=== PATIENT | female | born 2000 | race Caucasian/White ===

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

== ENCOUNTER 2020-02-11 18:12 | Emergency (ER) | payer MEDICAID ==
[~2020-02-11] VITALS: Ht 165.1 cm; Wt 129.5 kg
[2020-02-11 18:22] VITALS: TEMP 98.2
[2020-02-11 18:47] LABS: COLLECTION METHOD CLEAN CATCH
[2020-02-11 18:52] LABS: BASO % 0.1 % (0.0-2.0); GRAN # 5.1 (1.4-6.5); GRAN % 62.3 % (42.2-75.2); HEMATOCRIT 40.4 % (35.0-45.0); HEMOGLOBIN 13.2 g/dl (12.0-15.0); LYMPH # 2.4 (1.2-3.4); LYMPH % 29.2 % (20.0-51.0); MEAN CELL VOLUME 91 fl (80.0-95.0); MEAN CORPUSCULAR HEMOGLOBIN 30 pg (26.0-32.0); MEAN CORPUSCULAR HGB CONC 33 g/dl (33.0-37.0); MEAN PLATELET VOLUME 9.4 fl (7.4-10.4); MONO # 0.7 (0.1-0.6); PLATELET COUNT 274 K/mm3 (130-400); RED BLOOD COUNT 4.44 M/mm3 (4.10-5.30); REDCELL DISTRIBUTION WIDTH-CV 13.4 % (11.5-14.5)
[2020-02-11 18:58] LABS: AMORPHOUS CRYSTAL Present /uL; MUCOUS Present /lpf; PH 6 (5-8); URINE APPEARANCE Cloudy; URINE BACTERIA Moderate /hpf; URINE BILIRUBIN Negative (NEGATIVE); URINE BLOOD 1+ (NEGATIVE); URINE COLOR Yellow; URINE GLUCOSE Negative (NEGATIVE); URINE KETONE Negative (NEGATIVE); URINE LEUKOCYTE ESTERASE 3+ (NEGATIVE); URINE NITRATE Negative (NEGATIVE); URINE PROTEIN(semi-quant) 1+ (NEGATIVE); URINE UROBILINOGEN Negative (NEGATIVE)
[2020-02-11 19:02] LABS: BILIRUBIN,TOTAL 0.5 mg/dL (0.0-1.0); C-REACTIVE PROTEIN 1.8 mg/dL (0.0-0.9); CALCIUM 8.9 mg/dL (8.4-10.2); CREATININE, serum 0.7 (0.52-1.25); POTASSIUM 3.9 mmol/L (3.4-5.0); TOTAL PROTEIN 7.3 gm/dL (6.4-8.2)
[2020-02-11] MEDS ORDERED: OMNICEF 300MG300 MG PO (20:03)
[2020-02-11 20:19] VITALS: BP 120/75; PULSE 75
== END 2020-02-11 20:21 | disposition home or self-care (01) ==
LOC: COL.ER 18:12
PROVIDERS: Emergency Medicine
DX: N39.0 Urinary tract infection, site not specified (principal); R19.7 Diarrhea, unspecified; I10 Essential (primary) hypertension; Z79.84 Long term (current) use of oral hypoglycemic drugs
CPT/HCPCS: J0696; J2405; J3010; J7030; Q9967

== ENCOUNTER 2020-05-23 18:04 | Emergency (ER) | payer MEDICAID ==
[~2020-05-23] VITALS: Ht 167.6 cm; Wt 143.2 kg
[2020-05-23] MEDS ORDERED: CELEXA 20MG20 MG/TAB PO (19:48)
[2020-05-23] MEDS ORDERED: NEURONTIN600 MG/TAB PO (19:48)
[2020-05-23 20:37] VITALS: BP 148/81; PULSE 82; TEMP 98.3
== END 2020-05-23 20:38 | disposition home or self-care (01) ==
LOC: COL.ER 18:04
DX: M79.672 Pain in left foot (principal); F32.9 Major depressive disorder, single episode, unspecified; E11.9 Type 2 diabetes mellitus without complications; Z79.84 Long term (current) use of oral hypoglycemic drugs
CPT/HCPCS: J1885

== ENCOUNTER 2020-06-19 15:15 | Outpatient (RCR) | payer MEDICAID ==
[~2020-06-19 15:15] MED LIST changes: +NEURONTIN600 MG/TAB PO
== END 2020-07-11 08:49 | disposition home or self-care (01) ==
LOC: WSPT 15:15
DX: M79.672 Pain in left foot (principal); M79.671 Pain in right foot; Z98.890 Other specified postprocedural states

== ENCOUNTER → 2020-08-07 | Outpatient (RCR) | payer MEDICAID | LOC: WSPT | DX: M54.5 Low back pain (principal) ==

== ENCOUNTER 2020-10-21 19:58 | Emergency (ER) | payer MEDICAID ==
[~2020-10-21] VITALS: Ht 165.1 cm; Wt 143.2 kg
[2020-10-21 20:02] VITALS: TEMP 99.4
[2020-10-21 20:44] VITALS: BP 124/76; PULSE 83
== END 2020-10-21 20:46 | disposition home or self-care (01) ==
LOC: COL.ER 19:58
DX: K02.9 Dental caries, unspecified (principal); F32.9 Major depressive disorder, single episode, unspecified; Z79.84 Long term (current) use of oral hypoglycemic drugs
CPT/HCPCS: J1885

== ENCOUNTER 2020-10-23 09:45 | Outpatient (RCR) | payer MEDICAID | END 2020-11-07 | disposition home or self-care (01) | LOC: WSPT | DX: M54.5 Low back pain (principal) ==

== ENCOUNTER 2021-02-06 12:58 | Emergency (ER) | payer MEDICAID ==
[~2021-02-06] VITALS: Ht 162.6 cm; Wt 150.0 kg
[2021-02-06 13:18] VITALS: TEMP 98.4
[2021-02-06 14:41] LABS: BASO % 0.1 % (0.0-2.0); GRAN # 5.8 (1.4-6.5); GRAN % 69.6 % (42.2-75.2); HEMATOCRIT 40.8 % (35.0-45.0); LYMPH # 1.9 (1.2-3.4); LYMPH % 23.1 % (20.0-51.0); MEAN CELL VOLUME 92 fl (80.0-95.0); MEAN CORPUSCULAR HEMOGLOBIN 29 pg (26.0-32.0); MEAN CORPUSCULAR HGB CONC 32 g/dl (33.0-37.0); MEAN PLATELET VOLUME 9.1 fl (7.4-10.4); MONO # 0.6 (0.1-0.6); MONO % 6.8 % (1.7-9.3); PLATELET COUNT 288 K/mm3 (130-400); RED BLOOD COUNT 4.46 M/mm3 (4.10-5.30); REDCELL DISTRIBUTION WIDTH-CV 14.8 % (11.5-14.5)
[2021-02-06 14:48] LABS: BILIRUBIN,TOTAL 0.4 mg/dL (0.0-1.0); CALCIUM 9.4 mg/dL (8.4-10.2); CREATININE, serum 0.68 (0.52-1.25); POTASSIUM 3.9 mmol/L (3.4-5.0); TOTAL PROTEIN 7.1 gm/dL (6.4-8.2)
[2021-02-06 16:30] VITALS: BP 130/82; PULSE 86
== END 2021-02-06 16:30 | disposition home or self-care (01) ==
LOC: COL.ER 12:58
PROVIDERS: Emergency Medicine
DX: G43.909 Migraine, unspecified, not intractable, without status migrainosus (principal); R53.83 Other fatigue; R53.81 Other malaise; Z20.822 Contact with and (suspected) exposure to COVID-19
CPT/HCPCS: J0780; J1885

== ENCOUNTER 2021-04-23 23:24 | Emergency (ER) | payer MEDICAID ==
[~2021-04-23] VITALS: Ht 162.6 cm; Wt 163.6 kg
[2021-04-23 23:59] VITALS: TEMP 97.1
[2021-04-24 00:48] VITALS: BP 154/98; PULSE 78
== END 2021-04-24 00:48 | disposition home or self-care (01) ==
LOC: COL.ER 23:24
DX: F41.9 Anxiety disorder, unspecified (principal); R23.8 Other skin changes; F32.9 Major depressive disorder, single episode, unspecified; Z79.899 Other long term (current) drug therapy

== ENCOUNTER 2021-07-04 16:22 | Emergency (ER) | payer MEDICAID ==
[~2021-07-04] VITALS: Ht 165.1 cm; Wt 163.6 kg
[2021-07-04 16:28] VITALS: TEMP 98.1
[2021-07-04 18:08] LABS: GRAN # 7.4 K/mm3 (1.4-6.5); GRAN % 82.6 % (42.2-75.2); HEMATOCRIT 42.2 % (35.0-45.0); HEMOGLOBIN 13.8 g/dl (12.0-15.0); LYMPH % 11.3 % (20.0-51.0); MEAN CELL VOLUME 89 fl (80.0-95.0); MEAN CORPUSCULAR HEMOGLOBIN 29 pg (26.0-32.0); MEAN CORPUSCULAR HGB CONC 33 g/dl (33.0-37.0); MEAN PLATELET VOLUME 9.3 fl (7.4-10.4); MONO # 0.5 K/mm3 (0.1-0.6); MONO % 5.8 % (1.7-9.3); PLATELET COUNT 269 K/mm3 (130-400); RED BLOOD COUNT 4.73 M/mm3 (4.10-5.30); REDCELL DISTRIBUTION WIDTH-CV 14.7 % (11.5-14.5)
[2021-07-04 18:23] LABS: ALANINE AMINOTRANSFERASE 15 U/L (0-55); ALBUMIN 3.8 gm/dL (3.5-5.0); ALKALINE PHOSPHATASE 74 U/L (40-150); ANION GAP 10 mmol/L (7-16); AST,SGOT 17 U/L (5-34); BILIRUBIN,TOTAL 0.6 mg/dL (0.2-1.2); BLOOD UREA NITROGEN 9 mg/dL (7-19); C-REACTIVE PROTEIN 2.31 mg/dL (0.00-0.50); CALCIUM 9.3 mg/dL (8.4-10.2); CARBON DIOXIDE 25 mmol/L (22-29); CHLORIDE 105 mmol/L (98-107); CREATININE, serum 0.81 mg/dL (0.57-1.11); GLUCOSE 86 mg/dL (70-99); POTASSIUM 3.7 mmol/L (3.5-4.5); SODIUM 140 mmol/L (136-145); TOTAL PROTEIN 7.1 gm/dL (6.2-8.1)
[2021-07-04 18:30] LABS: TROPONIN-I < 0.010 ng/mL (0.00-0.033)
[2021-07-04 18:43] LABS: COLLECTION METHOD CLEAN CATCH
[2021-07-04 18:56] LABS: MUCOUS Present (NOT PRESENT); PH 7 (5-8); URINE APPEARANCE Cloudy (CLEAR/HAZY); URINE BACTERIA Moderate (NONE SEEN); URINE BILIRUBIN Negative (NEGATIVE); URINE BLOOD Negative (NEGATIVE); URINE COLOR Amber (YELLOW); URINE GLUCOSE Negative (NEGATIVE); URINE KETONE Negative (NEGATIVE); URINE LEUKOCYTE ESTERASE 2+ (NEGATIVE); URINE NITRATE Positive (NEGATIVE); URINE PROTEIN(semi-quant) Negative (NEGATIVE)
[2021-07-04 19:54] VITALS: BP 121/77; PULSE 102
== END 2021-07-04 19:54 | disposition home or self-care (01) ==
LOC: COL.ER 16:22
PROVIDERS: Nurse Practitioner Primary Care
DX: R07.89 Other chest pain (principal); F32.A Depression, unspecified; F41.9 Anxiety disorder, unspecified; Z79.899 Other long term (current) drug therapy

== ENCOUNTER 2021-08-06 13:09 | Emergency (ER) | payer MEDICAID ==
[~2021-08-06] VITALS: Ht 165.1 cm; Wt 163.6 kg
[2021-08-06 14:11] VITALS: TEMP 98.1
[2021-08-06] MEDS ORDERED: MOBIC15 MG PO (14:24)
[2021-08-06] MEDS ORDERED: PROVENTIL0.09 MG/A1 IH (14:24)
[2021-08-06] MEDS ORDERED: PREDNISONE50 MG PO (15:57)
[2021-08-06] MEDS ORDERED: CLEVER CHOICE1 EA20 MC (15:57)
[2021-08-06] MEDS ORDERED: VENTOLIN0.09 MG IH (15:57)
[2021-08-06 16:31] VITALS: BP 108/71; PULSE 112
== END 2021-08-06 16:31 | disposition home or self-care (01) ==
LOC: COL.ER 13:09
DX: R05.9 Cough, unspecified (principal); J45.909 Unspecified asthma, uncomplicated; E66.9 Obesity, unspecified; E11.9 Type 2 diabetes mellitus without complications; Z20.822 Contact with and (suspected) exposure to COVID-19; Z79.84 Long term (current) use of oral hypoglycemic drugs; Z79.899 Other long term (current) drug therapy; Z68.44 Body mass index [BMI] 60.0-69.9, adult
CPT/HCPCS: J7512

== ENCOUNTER → 2021-09-03 | Outpatient (RCR) | payer MEDICAID ==
[~2021-09-03] MED LIST changes: +CLEVER CHOICE1 EA20 MC; +MOBIC15 MG PO; +PREDNISONE20 MG PO; +PREDNISONE50 MG PO; +PROVENTIL0.09 MG/A1 IH
== END | disposition home or self-care (01) ==
LOC: PT.GENESIS
DX: N39.3 Stress incontinence (female) (male) (principal); M54.50 Low back pain, unspecified; M79.659 Pain in unspecified thigh; R53.1 Weakness

== ENCOUNTER 2021-09-17 17:34 | Emergency (ER) | payer MEDICAID ==
[~2021-09-17] VITALS: Ht 165.1 cm; Wt 154.5 kg
[~2021-09-17 17:34] MED LIST changes: -PREDNISONE20 MG PO
[2021-09-17 17:52] VITALS: TEMP 99.1
[2021-09-17 18:57] LABS: BASO % 0.1 % (0.0-2.0); GRAN # 7.3 K/mm3 (1.4-6.5); GRAN % 68.4 % (42.2-75.2); HEMOGLOBIN 12.1 g/dl (12.5-16.0); LYMPH # 2.6 K/mm3 (1.2-3.4); MEAN CELL VOLUME 92 fl (80.0-100.0); MEAN CORPUSCULAR HEMOGLOBIN 28 pg (27-31); MEAN CORPUSCULAR HGB CONC 31 g/dl (33.0-37.0); MEAN PLATELET VOLUME 9.5 fl (7.4-10.4); MONO # 0.7 K/mm3 (0.1-0.6); MONO % 6.9 % (1.7-9.3); PLATELET COUNT 330 K/mm3 (130-400); RED BLOOD COUNT 4.26 M/mm3 (4.10-5.30); REDCELL DISTRIBUTION WIDTH-CV 14.8 % (11.5-14.5)
[2021-09-17 19:15] LABS: ALBUMIN 3.6 gm/dL (3.5-5.0); BILIRUBIN,TOTAL 0.4 mg/dL (0.2-1.2); CALCIUM 8.9 mg/dL (8.4-10.2); CREATININE, serum 0.82 mg/dL (0.57-1.11); POTASSIUM 3.8 mmol/L (3.5-4.5); TOTAL PROTEIN 6.9 gm/dL (6.2-8.1)
[2021-09-17] MEDS ORDERED: PREDNISONE20 MG PO (21:12)
[2021-09-17 21:35] VITALS: BP 146/96; PULSE 112
== END 2021-09-17 21:35 | disposition home or self-care (01) ==
LOC: COL.ER 17:34
PROVIDERS: Nurse Practitioner Primary Care
DX: J45.901 Unspecified asthma with (acute) exacerbation (principal); E11.9 Type 2 diabetes mellitus without complications; Z79.52 Long term (current) use of systemic steroids; Z79.84 Long term (current) use of oral hypoglycemic drugs
CPT/HCPCS: J7030; J7512

== ENCOUNTER → 2021-10-01 | Outpatient (RCR) | payer MEDICAID ==
[~2021-10-01] MED LIST changes: +PREDNISONE20 MG PO
== END | disposition home or self-care (01) ==
LOC: PT.GENESIS
DX: N39.3 Stress incontinence (female) (male) (principal); M54.50 Low back pain, unspecified

== ENCOUNTER 2021-10-15 08:15 | Outpatient (RCR) | payer MEDICAID ==
[2021-10-31] MEDS ORDERED: CRUTCHES MC (14:30)
[2021-10-31] MEDS ORDERED: NORCO 325 MG-51 TAB PO (14:36)
== END 2021-11-01 | disposition home or self-care (01) ==
LOC: PT.GENESIS
DX: N39.3 Stress incontinence (female) (male) (principal); M54.50 Low back pain, unspecified

== ENCOUNTER → 2021-10-30 | Outpatient (CLI) | payer MEDICAID | LOC: COL.RAD 10:23 | DX: N91.4 Secondary oligomenorrhea (principal) ==

== ENCOUNTER 2021-10-31 13:28 | Emergency (ER) | payer MEDICAID ==
[~2021-10-31] VITALS: Ht 165.1 cm; Wt 159.1 kg
[2021-10-31 13:49] VITALS: BP 99/59; TEMP 97.9
[2021-10-31] MEDS ORDERED: CRUTCHES MC (14:30)
[2021-10-31] MEDS ORDERED: NORCO 325 MG-51 TAB PO (14:36)
[2021-10-31 14:45] VITALS: PULSE 87
== END 2021-10-31 14:45 | disposition home or self-care (01) ==
LOC: COL.ER 13:28
DX: S93.401A Sprain of unspecified ligament of right ankle, initial encounter (principal); E66.01 Morbid (severe) obesity due to excess calories; X50.1XXA Overexertion from prolonged static or awkward postures, initial encounter; W18.30XA Fall on same level, unspecified, initial encounter; Y92.89 Other specified places as the place of occurrence of the external cause

== ENCOUNTER 2021-11-28 09:00 | Outpatient (RCR) | payer MEDICAID | END 2021-12-01 | disposition home or self-care (01) | LOC: PT.GENESIS | DX: N39.3 Stress incontinence (female) (male) (principal) ==

== ENCOUNTER 2021-12-19 16:30 | Outpatient (RCR) | payer MEDICAID | END 2022-01-01 | disposition home or self-care (01) | LOC: WSPT | DX: N39.3 Stress incontinence (female) (male) (principal); M54.50 Low back pain, unspecified ==

== ENCOUNTER → 2022-01-17 | Outpatient (CLI) | payer OTHER | LOC: COL.PUL 08:00 | DX: Z02.71 Encounter for disability determination (principal) ==

== ENCOUNTER 2022-03-22 15:23 | Emergency (ER) | payer MEDICAID ==
[~2022-03-22] VITALS: Ht 167.6 cm; Wt 159.1 kg
[2022-03-22 16:02] VITALS: BP 109/69; PULSE 109; TEMP 98.9
[2022-03-22] MEDS ORDERED: NORCO 325 MG-51 TAB PO (16:40)
[2022-03-22] MEDS ORDERED: GOOD SENSE TRIP1 OI1 TP (16:40)
== END 2022-03-22 17:00 | disposition home or self-care (01) ==
LOC: COL.ER 15:23
DX: T25.221A Burn of second degree of right foot, initial encounter (principal); T31.0 Burns involving less than 10% of body surface; X10.2XXA Contact with fats and cooking oils, initial encounter

== ENCOUNTER 2022-11-28 09:30 | Outpatient (RCR) | payer MEDICAID ==
[~2022-11-28 09:30] MED LIST changes: +GOOD SENSE TRIP1 OI1 TP
== END 2022-12-01 ==
LOC: MKS.ESL.PT
DX: M54.50 Low back pain, unspecified (principal); S13.4XXA Sprain of ligaments of cervical spine, initial encounter

== ENCOUNTER → 2023-05-26 | Outpatient (CLI) | payer MEDICAID | LOC: MHCPAIN 09:42 | DX: M54.50 Low back pain, unspecified (principal); M79.605 Pain in left leg; M25.562 Pain in left knee; M51.36 Other intervertebral disc degeneration, lumbar region | CPT/HCPCS: G0463 ==

== ENCOUNTER → 2023-08-21 | Outpatient (CLI) | payer MEDICAID | LOC: MHCPAIN 09:06 | DX: M47.817 Spondylosis without myelopathy or radiculopathy, lumbosacral region (principal) | CPT/HCPCS: J0665 ==

== ENCOUNTER → 2023-11-12 | Outpatient (CLI) | payer MEDICAID ==
[~2023-11-12] MED LIST changes: +Gadoterate 20 ML VIAL IV ONE
== END ==
LOC: COL.RAD 09:06
DX: G43.709 Chronic migraine without aura, not intractable, without status migrainosus (principal); N91.2 Amenorrhea, unspecified; Z83.2 Family history of diseases of the blood and blood-forming organs and certain disorders involving the immune mechanism
CPT/HCPCS: A9575

== ENCOUNTER → 2023-11-13 | Outpatient (CLI) | payer MEDICAID ==
[~2023-11-13] MED LIST changes: -Gadoterate 20 ML VIAL IV ONE
== END ==
LOC: MHCPAIN
DX: M47.817 Spondylosis without myelopathy or radiculopathy, lumbosacral region (principal); M54.50 Low back pain, unspecified
CPT/HCPCS: J0665